=== PATIENT | female | born 1950 | race Caucasian/White ===

== ENCOUNTER 2023-07-30 03:16 | Outpatient (CLI) | payer OTHER, SELFPAY ==
[2023-07-30] MEDS: Methacholine 100 MG VIAL IH (17:21)
[2023-07-30] MEDS: Albuterol HFA 18 GM 200 PUFF INH IH (17:22)
[2023-07-30] MEDS: Inhaler, Assist Device 1 EACH MC (17:22)
--- NOTE | 2023-08-02 14:30 | PFT_ITS ---
Date of service: 07/30/23 Time of Service: 14:46 Pulmonary Function Test Result Indications: Chronic Cough Interpretation Spirometry: There is no airflow limitation. There was a 21% decrease in FEV1 with administr ation of 16mg/mL methacholine. Lung Volumes: Normal lung volumes Diffusion Capacity: Normal diffusion Airway Pressure: Normal airways resistance Impression Normal pulmonary function with a borderline methacholine challenge test. This may represent asthma in the correct clinical setting. Clinical Correlation therefore is recommended.
== END 2023-07-30 03:17 | disposition home or self-care (01) ==
PROVIDERS: PCP Registered Nurse Critical Care Medicine; Visit Provider Student in an Organized Health Care Education/Training Program
DX: J45.909 Unspecified asthma, uncomplicated (principal); R94.2 Abnormal results of pulmonary function studies
CPT/HCPCS: 94060; 94070; 94726; 94729; 94010; J7674